=== PATIENT | female | born 1965 | race Caucasian/White ===

== ENCOUNTER 2019-07-08 06:39 | Inpatient (IN) ==
--- NOTE | 2019-06-14 20:27 | PAT Medication Instructions ---
Medication Instructions Date of Service June 14, 2019 Home Medications cholecalciferol (vitamin D3) [Vitamin D3] 5,000 unit PO QAM epinephrine [EpiPen] 0.3 mg IM Q3H PRN magnesium citrate 300 mg PO QAM omega 2-pdf-mbn-fish oil [Fish Oil] 1 cap PO QAM Continue as directed epinephrine [EpiPen] 0.3 mg IM Q3H PRN (if needed) STOP taking 2 weeks before surgery (or as soon as possible if surgery is within 2 weeks) omega 5-wkk-aye-fish oil [Fish Oil] 1 cap PO QAM DO NOT take the morning of surgery cholecalciferol (vitamin D3) [Vitamin D3] 5,000 unit PO QAM magnesium citrate 300 mg PO QAM Other Notes If you have any questions please call us at [phone] or [phone] or [phone] or [phone]
--- NOTE | 2019-06-15 14:57 | Anesthesiology Consultation ---
Date of Service June 15, 2019 Assessment & Plan (1) Encounter for pre-operative examination: - Awaiting review preop testing. - Awaiting surgeon-ordered PCP clearance (Dr. King). Chart Review Chart Review: Pending: Refer to Additional Notes / Consult section (awaiting pcp eval with BP check) and Patient seen in Pre Admission Testing Teaching & Discussion Pre-Anesthesia Teaching/Discussion Notes: Instructed NPO after midnight before surgery,except medications with 15 cc of water. Medication instructions provided according to the PAT guidelines. History Surgery Operation Date: 07/08/19 09:35 Proposed Procedures p Right Total Hip Arthroplasty - Morgan Davies MD Height/Weight Height: 5 ft 2 in Weight: 77.2 kg Allergies Allergy/AdvReac Type Severity Reaction Status Date / Time bee venom protein (honey bee) Allergy Severe Anaphylaxis Verified 06/10/19 08:51 Medications Home Medications Medication Instructions Recorded Confirmed Last Taken cholecalciferol (vitamin D3) 5,000 unit PO QAM 06/10/19 06/10/19 Unknown [Vitamin D3] epinephrine [EpiPen] 0.3 mg IM Q3H PRN 06/10/19 06/10/19 Unknown magnesium citrate 300 mg PO QAM 06/10/19 06/10/19 Unknown omega 3-nca-efy-fish oil [Fish Oil] 1 cap PO QAM 06/10/19 06/10/19 Unknown lisinopril 20 mg PO DAILY 06/15/19 06/15/19 Unknown Past Medical History Medical History History of hypertension + white coat syndrome Obesity Osteoarthritis Exercise / Class Metabolic Activity II 4-5 Yardwork/Stairs/Walk up hill Past Family History Family History Other No significant family history Past Surgical History Surgical History History of left salpingo-oophorectomy [place] teeth removed Past Anesthesia History No Hx of Anesthesia Complications (except post-op nausea) and No Family Hx of Anesthesia Complications History of PONV No Hx of Motion Sickness and History of PONV (nausea*) Social History Smoking Status: Former smoker tobacco type: cigarettes Do You Dip or Chew Tobacco: No Smoking End Date: QUIT 10+ YEARS AGO Hx Alcohol Use: No Hx Substance Use: No substance use type: does not use Review of Systems Patient denies chest pain, shortness of breath, dyspnea on exertion, reflux, cough, wheezing, palpitations. Physical Exam Vital Signs VITALS BP 146/96 P 62 TEMP 98.2 SP02 94%RA RESP 18 PHYSICAL Full neck and c-spine range of motion. Full TMJ range of motion. TMD 3.5 finger breaths Mallampati Score 2 Dentition: missing side Lungs: clear throughout to auscultation Cardiac: regular rate and rhythm, no murmurs noted Spine: normal Carotid arteries: negative bruit Extremities: no edema Testing Laboratory Results 06/15/19 15:22 06/15/19 15:22 PT 9.9 Seconds (9.0-12.0) 06/15/19 15:22 INR 1.0 (0.9-1.1) 06/15/19 15:22 APTT 26.9 Seconds (21.0-31.0) 06/15/19 15:22 Hemoglobin A1c 5.9 % (4.5-5.6) H 06/15/19 15:22 Urine Color Yellow 06/15/19 15:22 Urine Appearance Clear (Clear) 06/15/19 15:22 Urine pH 5.0 (4.5-7.5) 06/15/19 15:22 Ur Specific [place] 1.017 (1.000-1.030) 06/15/19 15:22 Urine Protein Negative (Negative) 06/15/19 15:22 Urine Glucose (UA) Negative (Negative) 06/15/19 15:22 Urine Ketones Negative (Negative) 06/15/19 15:22 Urine Nitrite Negative (Negative) 06/15/19 15:22 Ur Leukocyte Esterase Negative (Negative) 06/15/19 15:22 Blood Type O Positive 06/15/19 15:22 Antibody Screen NEGATIVE 06/15/19 15:22 Electrocardiogram Date: 06/15/19 Findings: + SB @ (54) Chest X-Ray Date: 06/15/19 Findings: + NAD
[2019-06-15 16:03] LABS: Basophils # (auto) 0.02 K/uL (0-0.2); Basophils % (auto) 0.2 %; Eosinophils # (auto) 0.04 K/uL (0-0.5); Eosinophils % (auto) 0.4 %; Hematocrit (blood only) 43.4 % (37-47); Hemoglobin 14.5 g/dL (12.0-16.0); Immature Granulocytes # (auto) 0.02 K/uL (0.00-0.02); Immature Granulocytes % (auto) 0.2 %; Lymphocytes # (auto) 2.69 K/uL (1.2-3.4); Lymphocytes % (auto) 26.3 %; Mean Corpuscular Hemoglobin 30.7 pg (25-34); Mean Corpuscular Hgb Conc 33.4 g/dL (32-36); Mean Corpuscular Volume 91.8 fL (80-100); Mean Platelet Volume 9.8 fL (7.4-10.4); Monocytes # (auto) 0.44 K/uL (0.11-0.59); Monocytes % (auto) 4.3 %; Neutrophils # (auto) 7.02 K/uL (1.4-6.5); Neutrophils % (auto) 68.6 %; Platelet Count 257 K/uL (130-400); RDW Standard Deviation 43.8 fL (36.4-46.3); Red Blood Count 4.73 M/uL (4.2-5.4); White Blood Count 10.23 K/uL (4.8-10.8)
[2019-06-15 16:07] LABS: Appearance Urine Clear (Clear); Bilirubin Urine Negative (Negative); Blood Urine Negative (Negative); Color Urine Yellow; Glucose Urine UA Negative (Negative); Ketones Urine Negative (Negative); Leukocyte Esterase Urine Negative (Negative); Nitrite Urine Negative (Negative); Protein Urine Negative (Negative); Specific Gravity Urine 1.017 (1.000-1.030); Urobilinogen Urine Negative (Negative)
[2019-06-15 16:09] LABS: Albumin Level 4.4 gm/dl (3.4-5.0); BUN Creatinine Ratio 17.5 (10-20); Calcium 9.6 mg/dl (8.5-10.1); Est GFR (African American) 76.6; Est GFR (Non-African American) 66.1; Potassium 3.9 mmol/L (3.5-5.1)
[2019-06-15 16:12] LABS: Albumin Globulin Ratio 1.2 (0.9-2); Bilirubin,Total 0.5 mg/dl (0.2-1); Globulin 3.6 gm/dl (2.5-4.0)
[2019-06-15 16:16] LABS: Partial Thromboplastin Time 26.9 Seconds (21.0-31.0); Prothrombin Time 9.9 Seconds (9.0-12.0)
[2019-06-16 06:25] LABS: Estimated Average Glucose 123 mg/dl; Hemoglobin A1C 5.9 % (4.5-5.6)
--- NOTE | 2019-06-16 15:55 | History & Physical Report ---
Date of Service June 16, 2019 Assessment & Plan (1) Primary localized osteoarthrosis of right hip: DIAGNOSES: Right hip osteoarthritis. PROCEDURE: Right total hip arthroplasty. PLAN: The patient is scheduled to undergo this procedure at the [facility] as an inpatient with Dr. Morgan Davies on July 08, 2019. Risks and complications of the procedure such as infection, bleeding, pain, scarring, nerve and blood vessel damage, weakness, wound problems, stiffness, incomplete relief of symptoms, hardware failure, hardware loosening, wear, fracture, tendon or ligament injury, dislocation, leg length inequality, blood clots, embolism, heart attack, stroke and were explained to patient by Dr. Davies at her visit today. Informed consent to perform the procedure was obtained. We have already received medical clearance from the patient's primary care provider. However, we will need to obtain a preoperative CBC with differential, complete metabolic panel, PT, INR, blood type and screen, urinalysis, urine culture, EKG, hemoglobin A1c and a nasal swab for MRSA. The patient states she will obtain this testing prior to her appointment with anesthesia this afternoon. The patient states she has a walker she will bring with her on the day of surgery. I educated her about the total hip precautions and the use of an abduction pillow for 6 weeks postoperatively. I also advised her that I will provide her with prescriptions for an opioid analgesic along with an anti-inflammatory, upon discharge and I discussed use of extra strength Tylenol and baby aspirin twice daily for 30 days postoperatively for DVT prophylaxis. I also provided the patient with some information about lectures offered at [facility] in regards to joint replacement surgery, I went over the discharge packet with her and she states she will most likely have some in-home therapy for the first 2 weeks postoperatively. I also educated about the use of antibiotics prior to dental cleaning or procedures after joint replacement surgery. I also advised that she will need to purchase a hip kit from either [employer] or [employer] for the procedure. The patient will be scheduled for her 2-week postoperative followup with Dr. Davies on 07/20 at 9:00 a.m. At that appointment, she will be provided with an order for physical therapy along with a rehab protocol that she is to follow. She states she will most likely continue her outpatient physical therapy at [facility] in [place], [place]. I did provide the patient with the paperwork to obtain a handicap placard for her vehicle. I also advised her to read over the entire packet that was provided in regards to information she may need in regards to hip replacement surgery. The patient and her verbalized understanding of all information provided during today's visit. They thanked us for the care they received and states if there are questions or concerns, they will contact the clinic. History of Present Illness Chief Complaint: CHIEF COMPLAINT: Right hip pain. Primary Care Provider: Mariama Griffin MD HISTORY OF PRESENT ILLNESS: This 54-year-old female presents to clinic today for preoperative history and physical. The patient complains of 1 year history of anterolateral hip pain that is becoming progressively worse and developed an insidious onset and she has had no relief with the use of nonsteroidal agents or ice or any stretching type activities. The patient was referred to Dr. Davies by Dr. Reyna after he saw her for some right-sided knee pain. PAST SURGICAL HISTORY: Ovary removal, fallopian tube removal, wisdom tooth extraction. PAST MEDICAL HISTORY: Hypertension and mild obesity. FAMILY HISTORY: Positive for hypertension. ALLERGIES: The patient has no known drug allergies. CURRENT MEDICATIONS: Lisinopril 20 mg tablet daily, vitamin D3 unknown dosage daily, fish oil oral capsule, unknown dosage 1 twice daily and magnesium unknown dosage daily. SOCIAL HISTORY: Completely unremarkable. Allergies Allergy/AdvReac Type Severity Reaction Status Date / Time bee venom protein (honey bee) Allergy Severe Anaphylaxis Verified 06/10/19 08:51 Home Medications Home Medications Medication Instructions Recorded Confirmed Type cholecalciferol (vitamin D3) 5,000 unit PO QAM 06/10/19 06/10/19 History [Vitamin D3] epinephrine [EpiPen] 0.3 mg IM Q3H PRN 06/10/19 06/10/19 History magnesium citrate 300 mg PO QAM 06/10/19 06/10/19 History omega 7-gci-otv-fish oil [Fish Oil] 1 cap PO QAM 06/10/19 06/10/19 History lisinopril 20 mg PO DAILY 06/15/19 06/15/19 History Past Med/Surg History Medical History History of hypertension + white coat syndrome Obesity Osteoarthritis Surgical History History of left salpingo-oophorectomy [place] teeth removed Family History Other No significant family history Social History Preferred Language: [place] African Communication Ability: Effective Oxygen Equipment Aide Required: No Beliefs That Will Affect Care: None marital status: Current Living Situation: Family current occupational status: employed Other Information That Helps Us Care for You: No Feels Safe at Home: Yes Safety Concerns: Feels Safe At This Time Smoking Status: Former smoker Tobacco Type: cigarettes ; Do You Dip or Chew Tobacco: No ; Smoking End Date: QUIT 10+ YEARS AGO ; Second Hand Exposure: Yes (IN THE PAST) ; Tobacco Cessation Education Requested by Patient: No Hx Alcohol Use: No Hx Substance Use: No Review of Systems All systems reviewed & are unremarkable except as noted in HPI & below Physical Exam Physical Exam: PHYSICIAL EXAMINATION: The patient's skin is normal in appearance. No open skin lesions or discharge. Eyes: Pupils are equal and reactive to light and accommodating. Extraocular movements are intact. Throat: Posterior pharynx is clear with absence of edema, erythema or exudate. Cardiovascular exam: The patient has a regular rate and rhythm, no murmurs or gallops appreciated. Lungs: Auscultation of lung renteria reveals clear breath sounds throughout, no wheezing, rales or rhonchi. Abdomen is mildly obese, nondistended, nontender with normoactive bowel sounds. Extremities: Right hip: The patient has a positive Stinchfield test. Flexion is to 115 degrees, external rotation to 50 degrees, internal rotation to 20 degrees. MAYRA test is 3 fists. The patient experiences referred pain to the anterolateral aspect of the hip with active abduction and adduction of the right lower extremity. Otherwise, she is neurovascularly intact in her calf is soft and supple, nontender to palpation. She does walk with a slight antalgic gait. Neurologic exam: Cranial nerves 2-12 are intact with no motor or sensory deficit. Psychological/general exam: The patient is alert and oriented x3 with proper grooming and hygiene. Results & Data Laboratory Results Lab Results 06/15/19 06/15/19 06/15/19 Range/Units 15:22 15:22 15:22 WBC (4.8-10.8) K/uL RBC (4.2-5.4) M/uL Hgb (12.0-16.0) g/dL Hct (37-47) % MCV (80-100) fL MCH (25-34) pg MCHC (32-36) g/dL RDW Std Deviation (36.4-46.3) fL RDW Coeff of Shitla (11.5-14.5) % Plt Count (130-400) K/uL MPV (7.4-10.4) fL Immature Gran % (Auto) % Neut % (Auto) % Lymph % (Auto) % [place] % (Auto) % Eos % (Auto) % Baso % (Auto) % Immature Gran # (Auto) (0.00-0.02) K/uL Neut # (Auto) (1.4-6.5) K/uL Lymph # (Auto) (1.2-3.4) K/uL [place] # (Auto) (0.11-0.59) K/uL Eos # (Auto) (0-0.5) K/uL Baso # (Auto) (0-0.2) K/uL PT (9.0-12.0) Seconds INR (0.9-1.1) APTT (21.0-31.0) Seconds PTT Ratio Sodium 139 (136-145) mmol/L Potassium 3.9 (3.5-5.1) mmol/L Chloride 106 (98-107) mmol/L Carbon Dioxide 26 (21-32) mmol/L Anion Gap 7.0 (3-11) BUN 17 (7-18) mg/dl Creatinine 0.96 (0.6-1.2) mg/dl Est Cr Clr Drug Dosing 63.0 ml/min Est GFR ( Amer) 76.6 Est GFR (Non-Af Amer) 66.1 BUN/Creatinine Ratio 17.5 (10-20) Glucose 114 H (70-99) mg/dl Estimat Average Glucose mg/dl Hemoglobin A1c (4.5-5.6) % Calcium 9.6 (8.5-10.1) mg/dl Total Bilirubin 0.5 (0.2-1) mg/dl AST 9 L (15-37) U/L ALT 23 (12-78) U/L Alkaline Phosphatase 89 (45-117) U/L Total Protein 8.0 (6.4-8.2) gm/dl Albumin 4.4 (3.4-5.0) gm/dl Globulin 3.6 (2.5-4.0) gm/dl Albumin/Globulin Ratio 1.2 (0.9-2) Urine Color Yellow Urine Appearance Clear (Clear) Urine pH 5.0 (4.5-7.5) Ur Specific [place] 1.017 (1.000-1.030) Urine Protein Negative (Negative) Urine Glucose (UA) Negative (Negative) Urine Ketones Negative (Negative) Urine Blood Negative (Negative) Urine Nitrite Negative (Negative) Urine Bilirubin Negative (Negative) Urine Urobilinogen Negative (Negative) Ur Leukocyte Esterase Negative (Negative) Nasal Screen MRSA (PCR) Negative (Negative) Blood Type Antibody Screen 06/15/19 06/15/19 06/15/19 Range/Units 15:22 15:22 15:22 WBC 10.23 (4.8-10.8) K/uL RBC 4.73 (4.2-5.4) M/uL Hgb 14.5 (12.0-16.0) g/dL Hct 43.4 (37-47) % MCV 91.8 (80-100) fL MCH 30.7 (25-34) pg MCHC 33.4 (32-36) g/dL RDW Std Deviation 43.8 (36.4-46.3) fL RDW Coeff of Shital 13.0 (11.5-14.5) % Plt Count 257 (130-400) K/uL MPV 9.8 (7.4-10.4) fL Immature Gran % (Auto) 0.2 % Neut % (Auto) 68.6 % Lymph % (Auto) 26.3 % [place] % (Auto) 4.3 % Eos % (Auto) 0.4 % Baso % (Auto) 0.2 % Immature Gran # (Auto) 0.02 (0.00-0.02) K/uL Neut # (Auto) 7.02 H (1.4-6.5) K/uL Lymph # (Auto) 2.69 (1.2-3.4) K/uL [place] # (Auto) 0.44 (0.11-0.59) K/uL Eos # (Auto) 0.04 (0-0.5) K/uL Baso # (Auto) 0.02 (0-0.2) K/uL PT 9.9 (9.0-12.0) Seconds INR 1.0 (0.9-1.1) APTT 26.9 (21.0-31.0) Seconds PTT Ratio 1.0 Sodium (136-145) mmol/L Potassium (3.5-5.1) mmol/L Chloride (98-107) mmol/L Carbon Dioxide (21-32) mmol/L Anion Gap (3-11) BUN (7-18) mg/dl Creatinine (0.6-1.2) mg/dl Est Cr Clr Drug Dosing ml/min Est GFR ( Amer) Est GFR (Non-Af Amer) BUN/Creatinine Ratio (10-20) Glucose (70-99) mg/dl Estimat Average Glucose 123 mg/dl Hemoglobin A1c 5.9 H (4.5-5.6) % Calcium (8.5-10.1) mg/dl Total Bilirubin (0.2-1) mg/dl AST (15-37) U/L ALT (12-78) U/L Alkaline Phosphatase (45-117) U/L Total Protein (6.4-8.2) gm/dl Albumin (3.4-5.0) gm/dl Globulin (2.5-4.0) gm/dl Albumin/Globulin Ratio (0.9-2) Urine Color Urine Appearance (Clear) Urine pH (4.5-7.5) Ur Specific [place] (1.000-1.030) Urine Protein (Negative) Urine Glucose (UA) (Negative) Urine Ketones (Negative) Urine Blood (Negative) Urine Nitrite (Negative) Urine Bilirubin (Negative) Urine Urobilinogen (Negative) Ur Leukocyte Esterase (Negative) Nasal Screen MRSA (PCR) (Negative) Blood Type Antibody Screen 06/15/19 Range/Units 15:22 WBC (4.8-10.8) K/uL RBC (4.2-5.4) M/uL Hgb (12.0-16.0) g/dL Hct (37-47) % MCV (80-100) fL MCH (25-34) pg MCHC (32-36) g/dL RDW Std Deviation (36.4-46.3) fL RDW Coeff of Shital (11.5-14.5) % Plt Count (130-400) K/uL MPV (7.4-10.4) fL Immature Gran % (Auto) % Neut % (Auto) % Lymph % (Auto) % [place] % (Auto) % Eos % (Auto) % Baso % (Auto) % Immature Gran # (Auto) (0.00-0.02) K/uL Neut # (Auto) (1.4-6.5) K/uL Lymph # (Auto) (1.2-3.4) K/uL [place] # (Auto) (0.11-0.59) K/uL Eos # (Auto) (0-0.5) K/uL Baso # (Auto) (0-0.2) K/uL PT (9.0-12.0) Seconds INR (0.9-1.1) APTT (21.0-31.0) Seconds PTT Ratio Sodium (136-145) mmol/L Potassium (3.5-5.1) mmol/L Chloride (98-107) mmol/L Carbon Dioxide (21-32) mmol/L Anion Gap (3-11) BUN (7-18) mg/dl Creatinine (0.6-1.2) mg/dl Est Cr Clr Drug Dosing ml/min Est GFR ( Amer) Est GFR (Non-Af Amer) BUN/Creatinine Ratio (10-20) Glucose (70-99) mg/dl Estimat Average Glucose mg/dl Hemoglobin A1c (4.5-5.6) % Calcium (8.5-10.1) mg/dl Total Bilirubin (0.2-1) mg/dl AST (15-37) U/L ALT (12-78) U/L Alkaline Phosphatase (45-117) U/L Total Protein (6.4-8.2) gm/dl Albumin (3.4-5.0) gm/dl Globulin (2.5-4.0) gm/dl Albumin/Globulin Ratio (0.9-2) Urine Color Urine Appearance (Clear) Urine pH (4.5-7.5) Ur Specific [place] (1.000-1.030) Urine Protein (Negative) Urine Glucose (UA) (Negative) Urine Ketones (Negative) Urine Blood (Negative) Urine Nitrite (Negative) Urine Bilirubin (Negative) Urine Urobilinogen (Negative) Ur Leukocyte Esterase (Negative) Nasal Screen MRSA (PCR) (Negative) Blood Type O Positive Antibody Screen NEGATIVE
[~2019-07-08 06:39] MED LIST: ACETAMINOPHEN 500 MG TAB PO SCH; BUPIVACAINE 0.5 % 5 MG/1 ML PF 10ML VIAL ONE; CEFAZOLIN 2000MG 2,000 MG/15 ML SYR IV SCH; CeleBREX 200 MG CAP PO SCH; FAMOTIDINE 20 MG TAB PO SCH; LR 15ML/HR IV SCH; LR 60ML/HR IV SCH; METOCLOPRAMIDE HCL 10 MG TABLET PO SCH; ROPIVACAINE 0.5% HCL/PF 150 MG, BUPIVACAINE 0.5% MPF 30 ML, EPINEPHrine 0.15 MG, Ketoro... INFIL SCH; SCOPOLAMINE 1.5 MG TDSY TD SCH; TRAMADOL HCL 50 MG TABLET PO SCH; TRANEXAMIC ACID 1,000 MG **IV Intra-op IV SCH; TRANEXAMIC ACID 1,000 MG **IV Pre-op IV SCH; dexAMETHasone 4 MG TAB PO SCH
[2019-07-08] MEDS ORDERED: fentaNYL citrate 100 MCG/2 ML VIAL IV PRN (07:38)
[2019-07-08] MEDS ORDERED: ATROPINE SULFATE 0.1 MG/ML 10ML SYR IV PRN (07:38)
[2019-07-08] MEDS ORDERED: HYDROmorphone INJ 1 MG/ML SYRINGE IV PRN (07:38)
[2019-07-08] MEDS ORDERED: PHENYLEPHRINE 100MCG/ML 5ML SYR IV PRN (07:38)
[2019-07-08] MEDS ORDERED: ePHEDrine sulfate 50 MG/ML AMP IV PRN (07:38)
[2019-07-08] MEDS ORDERED: ONDANSETRON INJ 2 MG/ML 2 ML VIAL IV PRN ×2 (07:38→11:09)
[2019-07-08] MEDS ORDERED: LABETALOL HCL IV 5 MG/ML 20ML IV PRN (07:38)
[2019-07-08] MEDS ORDERED: MEPERIDINE HCL 25 MG/ML CARP IV PRN (07:38)
[2019-07-08] MEDS ORDERED: fentaNYL citrate 100 MCG/2 ML VIAL ONE (07:49)
[2019-07-08] MEDS ORDERED: MIDAZOLAM HCL 1 MG/ML 2ML VIAL ONE ×2 (07:49)
--- NOTE | 2019-07-08 08:57 | History & Physical Bridge Note ---
Date of Service July 08, 2019 History & Physical Bridge Note I have examined the patient, reviewed the History & Physical and in the interval since the performance of the History & Physical I have noted the following changes of clinical significance: no changes noted
[2019-07-08] MEDS ORDERED: ORTHO JOINT ANESTHETIC ONE (09:03)
[2019-07-08] MEDS ORDERED: LIDOCAINE HCL 2% 2 ML VIAL/AMP(20MG/ML) INFIL ONE (09:41)
[2019-07-08] MEDS ORDERED: PROPOFOL IV EMULSION 10 MG/ML 20 ML VIAL IV ONE (09:41)
[2019-07-08] MEDS ORDERED: ONDANSETRON INJ 2 MG/ML 2 ML VIAL ONE (09:41)
[2019-07-08] MEDS ORDERED: ePHEDrine sulfate 50 MG/ML SYR ONE (09:48)
--- NOTE | 2019-07-08 10:55 | Post Operative Brief Note ---
Immediate Post Op Note v1 Date of Surgery July 08, 2019 Pre & Post Diagnosis Operation Date: 07/08/19 09:25 Pre-Op Diagnosis: Right Hip Osteoarthritis Post-Op Diagnosis: Right Hip Osteoarthritis I identified the patient and participated in the time-out.: Yes Procedure Operation Date: 07/08/19 09:25 Actual Procedures p Right Total Hip Arthroplasty, Uncemented(Right) - Morgan Davies MD Surgeon Morgan Davies MD Measurer JEANINE Garcia PA-C Estimated Blood Loss 100 Findings Consistent with Post-Op Diagnosis Fluids 1300 Anesthesia Type Spinal MAC Complications none Disposition Accompanied Patient To Recovery: No Disposition: Recovery Room
[2019-07-08] MEDS ORDERED: MAGNESIUM HYDROXIDE SUSP 30 ML UDC PO PRN (11:09)
[2019-07-08] MEDS ORDERED: DiphenhydrAMINE HCL 50 MG/ML VIAL IV PRN (11:09)
[2019-07-08] MEDS ORDERED: ALUMINUM/MAGNESIUM SUSP 30 ML UDC PO PRN (11:09)
[2019-07-08] MEDS ORDERED: bisacodyL 10 MG SUPP PR PRN (11:09)
[2019-07-08] MEDS ORDERED: HYDROmorphone INJ 0.5 MG/0.5 ML SYR IV PRN (11:09)
[2019-07-08] MEDS ORDERED: OXYCODONE HCL IR 5 MG TAB (IMMEDIATE RELEASE) PO PRN (11:09)
[2019-07-08] MEDS ORDERED: NALOXONE HCL 0.4 MG/1 ML VIAL/CARP IV PRN (11:09)
[2019-07-08] MEDS ORDERED: METOCLOPRAMIDE HCL INJ 5 MG/ML 2 ML VIAL IV PRN (11:09)
--- NOTE | 2019-07-08 11:09 | Operative Report ---
Post Operative Report Pre & Post Diagnosis Operation Date: 07/08/19 09:25 Pre-Op Diagnosis: Right Hip Osteoarthritis Post-Op Diagnosis: Right Hip Osteoarthritis I identified the patient and participated in the time-out.: Yes Procedure Operation Date: 07/08/19 09:25 Actual Procedures p Right Total Hip Arthroplasty, Uncemented(Right) - Morgan Davies MD Surgeon Morgan Davies MD Golf Course Designer JEANINE Garcia PA-C Estimated Blood Loss 100 Findings Consistent with Post-Op Diagnosis Specimens Right femoral head Complications none Disposition Accompanied Patient To Recovery: Yes Disposition: Recovery Room Description of Procedure I was present during the entire procedure assisting with wound closure and dressing application. Please see Dr. Davies procedure note for specifics of the case. I attest to the content of the Intraoperative Record and any orders documented therein. Any exceptions are noted below.
[2019-07-08] MEDS ORDERED: EPINEPHRINE ADULT AUTO-INJECT 0.3 MG SYR IM PRN (11:13)
[2019-07-08] MEDS ORDERED: SODIUM CHLORIDE 0.9% 1000ML 1,000 ML IV SCH (11:15)
--- NOTE | 2019-07-08 11:35 | XRay Report ---
XR hip 1V RT w pelvis HISTORY: 54 years-old Female IN PACU - A/P PELVIS and LATERAL HIP right hip total joint arthroplast y COMPARISON: Pelvis radiograph 06/15/2019 TECHNIQUE: AP view of the pelvis with crosstable lateral view of the right hip FINDINGS: Satisfactory alignment of the right hip total joint arthroplasty. No acute fracture. Expected postsur gical soft tissue swelling and deep tissue air adjacent to the right hip. No retained foreign body id entified. IMPRESSION: Satisfactory alignment of the right hip total joint arthroplasty. The above report was generated using voice recognition software. It may contain grammatical, syntax o r spelling errors. Electronically signed by: Dany Escobar M.D. 07/08/2019 11:34 AM
--- NOTE | 2019-07-08 11:36 | Anesthesiology Progress Note ---
Date of Service July 08, 2019 Anesthesia Post Procedure Vital Signs Vital Signs: Temp Pulse Pulse Resp BP Pulse Ox 07/08/19 11:25 61 13 119/71 94 07/08/19 11:15 63 15 114/71 99 07/08/19 11:06 36.2 C L 69 15 107/65 97 07/08/19 07:13 36.8 C 69 18 179/104 H 98 Pain Intensity Right Hip: Pain Intensity: 1 Transfer of Care Handoff Completed per policy Notes Mental Status: alert / awake / arousable Patient Amnestic to Procedure: Yes Nausea / Vomiting: adequately controlled Pain: adequately controlled Airway Patency, RR, SpO2: stable & adequate BP & HR: stable & adequate Hydration State: stable & adequate Anesthetic Complications: no major complications apparent and Pt Satisfied with anesthetic care
--- NOTE | 2019-07-08 11:38 | Operative Report ---
DATE OF OPERATION: 07/08/2019 PREOPERATIVE DIAGNOSES: Right hip osteoarthritis and congenital hip dysplasia. POSTOPERATIVE DIAGNOSES: Right hip osteoarthritis and congenital hip dysplasia. OPERATIONS PERFORMED: Right total hip arthroplasty. A 22 modifier should be added to this procedure due to the increased complexity secondary to congenital hip dysplasia. SURGEON: Morgan Davies MD AUDIO DIRECTOR: José Garcia PA-C ESTIMATED BLOOD LOSS: 100 mL. INTRAVENOUS FLUIDS: 1300 mL crystalloid. SPECIMENS: Femoral head. COMPLICATIONS: None. IMPLANTS: 1. DePuy [place] Gription acetabular sector cup 50 mm outer diameter. 2. DePuy [place] cancellous bone screw 6.5 mm x 40 mm. 3. DePuy [place] Ultrex polyethylene liner neutral for a 32 mm femoral head. 4. DePuy [place] size 2 standard offset femoral stem with Porocoat. 5. Biolox delta ceramic femoral head, 32 mm diameter with a +1 offset. INDICATIONS: Ms. Gupta is a 54-year-old female with pain in her right hip for the last 2 years. The pain has progressively worsened over time and now is affecting her activities of daily living. X-rays were obtained demonstrating a congenital hip dysplasia with a shallow socket, valgus femoral neck and end-stage osteoarthritis with complete joint space loss, subchondral cyst formation and subchondral sclerosis. I had a long discussion with her about the risks and benefits of surgery, alternatives to surgery and expected outcomes. After reviewing all these, she elected to proceed with surgery. All questions were answered. Informed consent was signed. OPERATIVE FINDINGS: The patient's acetabulum was quite shallow with abundant medial osteophytes covering the cotyloid fossa. She had an acetabular retroversion as well as excessive femoral anteversion. I was able to create a new socket for her in normal anteversion and placed a ceramic on polyethylene bearing through a posterior approach. DESCRIPTION OF THE OPERATION: The patient was identified in the preoperative holding area where her surgical site was marked. She was given a spinal anesthetic, then brought back to main operating room where she was placed on the operating room table and general anesthesia was administered. All bony prominences were padded. Perioperative antibiotics were administered. She was prepped and draped in normal sterile fashion. Prior to incision, a multidisciplinary timeout was called. All in the room were in agreement. We began by making an 18 cm long incision for posterior approach to the hip. We dissected down through subcutaneous tissues to the level of the fascia. Fascia was incised in line with the incision. A Charnley bow was placed. The sciatic nerve was identified and protected throughout the case. The trochanteric bursa contents were excised. Subcutaneous fat was dissected off the piriformis and short external rotators and these were dissected off the posterior aspect of the hip capsule. The quadratus femoris was similarly subperiosteally dissected. We then made a box cut in the posterior aspect of the hip capsule. Femoral head was dislocated. Again, she was noted to have a valgus neck with shortening as well as flattening of her femoral head consistent with hip dysplasia. We then marked out our femoral neck cut at 8 mm, which was our preoperative template. Once the neck cut was made, the specimen was sent for permanent section. The acetabulum was then exposed. As stated above, she had acetabular retroversion with abundant medial osteophytes. We began by reaming with a 42 mm reamer, which was used to medialize her acetabulum and removed the medial osteophytes. This revealed underlying pulvinar fat which was removed with electrocautery. I then sequentially reamed up to a size 50 mm acetabulum. This gave us a healthy bleeding cancellous bone. The 50 mm cup was then opened up. The acetabulum was irrigated and dried and then the [place] Gription shell was impacted into position with 45 degrees of lateral opening and 25 degrees of anteversion. The drill was used to place a single bone screw up into the ilium. Excellent fixation was obtained. We then placed our polyethylene liner for a 50 outer diameter and 32 inner diameter. This was impacted into position. The locking mechanism was checked to ensure it had engaged, which it had. We then exposed the femoral neck. The lateral hip capsule was removed and the lateral femoral neck was then excised using a box osteotome. The intramedullary guide was used followed by the lateralizing reamer. However, canal was so tight that we were unable to do a lot of lateralizing with a reamer. We then sequentially reamed her up to a size 2, which was a preoperative template. We then broached her up to the size #2. This gave us excellent torsional stability and sat about a millimeter above our neck cut, which was appropriate. We then trialed with a +5 femoral head. However, we were unable to reduce the hip because of excessive leg length. We therefore downsized to a +1.5 femoral head. This allowed us to easily relocate the hip. Her shuck test was appropriate. Her leg lengths were checked and these were symmetric. The hip was stable in extension and external rotation. She was stable in the sleeper position. At 90 degrees of hip flexion, she could be internally rotated 60 degrees before leaving out of the cup. I was very happy with the stability exam. Therefore, the hip was dislocated and the trial components were removed from the femur. The femoral canal was irrigated and dried. The real size 2 standard offset [place] femoral stem was opened up and impacted down into position. It sat at the same level as the broach. The +1 ceramic femoral head was then opened up and impacted onto the trunnion, which had been cleaned and dried. The hip was then atraumatically reduced. The wound was irrigated with dilute Betadine solution. The periarticular injection was then used. We then began to close. The short external rotators and piriformis were repaired using #2 Vicryl through bone tunnels in the posterior aspect of the greater trochanter. The fascia was run with a looped #1 PDS suture. The deep dermal layer was closed with #1 PDS. The deep dermal layer was closed with 2-0 Vicryl. Zipline was used for the skin. A Silverlon dressing was placed followed by a compressive dressing. The patient was rolled supine. Her leg lengths were checked and again were symmetric. She was then placed into a triangular shaped abduction pillow and transferred to recovery room in stable condition. POSTOPERATIVE COURSE: The patient will be discharged home from the recovery room. The patient will be admitted overnight for pain control and monitoring. She will be on aspirin for DVT prophylaxis. She will be weightbearing as tolerated with posterior hip precautions. I attest to the content of the Intraoperative Record and any orders documented therein. Any exception s are noted below.
[2019-07-08] MEDS: ACETAMINOPHEN 500 MG TAB PO SCH ×2 (13:05→21:23)
[2019-07-08] MEDS: KETOROLAC 30 MG/ML VIAL IV SCH ×2 (13:05→19:51)
[2019-07-08] MEDS: CHECK SCOPOLAMINE PATCH PLACEMENT SCH ×2 (15:44→23:25)
[2019-07-08] MEDS: TRAMADOL HCL 50 MG TABLET PO PRN ×2 (16:56→17:46)
[2019-07-08] MEDS: CEFAZOLIN 2000MG 2,000 MG/15 ML SYR IV SCH (16:57)
[2019-07-08] MEDS ORDERED: TRANEXAMIC ACID 1,000 MG in 0.9 % SODIUM CHLORIDE 100 ML IV SCH (17:15)
[2019-07-08] MEDS ORDERED: SENNA 8.6 MG TAB PO SCH (21:00)
[2019-07-08] MEDS: DOCUSATE SODIUM 100 MG CAP PO SCH (21:24)
[2019-07-08] MEDS: ASPIRIN 81 MG ECTAB PO SCH (21:24)
[2019-07-09] MEDS: CEFAZOLIN 2000MG 2,000 MG/15 ML SYR IV SCH (01:41)
[2019-07-09] MEDS: KETOROLAC 30 MG/ML VIAL IV SCH ×2 (01:41→08:40)
[2019-07-09] MEDS: ACETAMINOPHEN 500 MG TAB PO SCH ×2 (05:12→13:00)
[2019-07-09 05:23] LABS: Basophils # (auto) 0.01 K/uL (0-0.2); Basophils % (auto) 0.1 %; Hematocrit (blood only) 32.6 % (37-47); Immature Granulocytes # (auto) 0.02 K/uL (0.00-0.02); Immature Granulocytes % (auto) 0.1 %; Lymphocytes % (auto) 12.9 %; Mean Corpuscular Hemoglobin 30.5 pg (25-34); Mean Corpuscular Hgb Conc 33.7 g/dL (32-36); Mean Corpuscular Volume 90.3 fL (80-100); Mean Platelet Volume 9.3 fL (7.4-10.4); Monocytes # (auto) 0.77 K/uL (0.11-0.59); Monocytes % (auto) 5.5 %; Neutrophils # (auto) 11.31 K/uL (1.4-6.5); Neutrophils % (auto) 81.4 %; Platelet Count 231 K/uL (130-400); RDW Coefficient of Variation 13.1 % (11.5-14.5); RDW Standard Deviation 43.5 fL (36.4-46.3); Red Blood Count 3.61 M/uL (4.2-5.4); White Blood Count 13.91 K/uL (4.8-10.8)
[2019-07-09 05:45] LABS: BUN Creatinine Ratio 17.5 (10-20); Calcium 8.5 mg/dl (8.5-10.1); Est GFR (African American) 67.2; Potassium 4.4 mmol/L (3.5-5.1)
--- NOTE | 2019-07-09 07:44 | Anesthesiology Progress Note ---
Date of Service July 09, 2019 Anesthesia Post Procedure Vital Signs Vital Signs: Temp Pulse Pulse Resp BP Pulse Ox 07/09/19 03:20 36.8 C 49 L 16 96/59 L 98 07/08/19 23:33 36.9 C 50 L 16 101/63 96 07/08/19 20:00 37.1 C 63 16 106/63 95 07/08/19 15:17 36.7 C 62 16 121/70 98 07/08/19 14:01 16 132/78 93 07/08/19 12:58 64 16 129/71 93 07/08/19 12:37 61 16 120/73 92 07/08/19 12:05 36.8 C 64 14 118/73 94 07/08/19 11:50 60 19 130/68 92 07/08/19 11:35 36.7 C 65 18 107/73 94 07/08/19 11:25 61 13 119/71 94 07/08/19 11:15 63 15 114/71 99 07/08/19 11:06 36.2 C L 69 15 107/65 97 Pain Intensity Right Hip: Pain Intensity: 5 Notes Mental Status: alert / awake / arousable and participated in evaluation Nausea / Vomiting: adequately controlled Pain: adequately controlled Airway Patency, RR, SpO2: stable & adequate BP & HR: stable & adequate Hydration State: stable & adequate
[2019-07-09] MEDS ORDERED: dexAMETHasone 4 MG TAB PO SCH (08:00)
[2019-07-09] MEDS: DOCUSATE SODIUM 100 MG CAP PO SCH (08:40)
[2019-07-09] MEDS: ASPIRIN 81 MG ECTAB PO SCH (08:41)
--- NOTE | 2019-07-09 08:50 | Orthopedic Progress Note ---
Date of Service July 09, 2019 Assessment & Plan (1) History of total right hip arthroplasty: Total hip precautions WBAT with walker assistance PT/OT this AM Keep dressing in place DVT prophy with TEDs and Aspirin Pain control with PO meds discuss discharge planning with case management F/u at [facility] in 2 wks as scheduled. Subjective This 54 yo F is day 1 s/p Right Total Hip Arthroplasty. She is doing very well this AM. Has only minimal pain over anterior groin with certain movements. States that the pain meds easily control her pain. Has been ambulatory with walker assistance to bathroom. Denies CP, SOB, nausea, vomiting, fever, chills, sweats, lethargy or numbness/tingling in Right LE. States that she will be ready to go home after lunch. Review of Systems Review of Systems: All systems reviewed & are unremarkable except as noted in HPI & below Physical Exam Physical Exam: Right lower leg: Dressing clean, dry and intact. Able to fire quad and perform SLRT. Knee ROM from 0-90 causes only mild anterior hip discomfort. Minimal pain with very light internal and external hip rotation. Able to actively dorsi/plantar flex foot. Calf soft and supple. Periph pulses easily palpable. Cap refill < 2 seconds. Results & Data Vital Signs (Past 12 Hours) Vital Signs Temp Pulse Pulse Resp BP Pulse Ox 07/09/19 08:29 44 L 07/09/19 07:53 36.9 C 45 L 16 108/64 97 07/09/19 03:20 36.8 C 49 L 16 96/59 L 98 07/08/19 23:33 36.9 C 50 L 16 101/63 96 Laboratory Results 07/09/19 07/09/19 Range/Units 04:48 04:48 WBC 13.91 H (4.8-10.8) K/uL RBC 3.61 L (4.2-5.4) M/uL Hgb 11.0 L (12.0-16.0) g/dL Hct 32.6 L (37-47) % MCV 90.3 (80-100) fL MCH 30.5 (25-34) pg MCHC 33.7 (32-36) g/dL RDW Std Deviation 43.5 (36.4-46.3) fL RDW Coeff of Shital 13.1 (11.5-14.5) % Plt Count 231 (130-400) K/uL MPV 9.3 (7.4-10.4) fL Immature Gran % (Auto) 0.1 % Neut % (Auto) 81.4 % Lymph % (Auto) 12.9 % [place]away % (Auto) 5.5 % Eos % (Auto) 0.0 % Baso % (Auto) 0.1 % Immature Gran # (Auto) 0.02 (0.00-0.02) K/uL Neut # (Auto) 11.31 H (1.4-6.5) K/uL Lymph # (Auto) 1.80 (1.2-3.4) K/uL [place]away # (Auto) 0.77 H (0.11-0.59) K/uL Eos # (Auto) 0.00 (0-0.5) K/uL Baso # (Auto) 0.01 (0-0.2) K/uL Sodium 136 (136-145) mmol/L Potassium 4.4 (3.5-5.1) mmol/L Chloride 107 (98-107) mmol/L Carbon Dioxide 25 (21-32) mmol/L Anion Gap 4.0 (3-11) BUN 19 H (7-18) mg/dl Creatinine 1.07 (0.6-1.2) mg/dl Est Cr Clr Drug Dosing 57.0 ml/min Est GFR ( Amer) 67.2 Est GFR (Non-Af Amer) 58.0 BUN/Creatinine Ratio 17.5 (10-20) Glucose 136 H (70-99) mg/dl Calcium 8.5 (8.5-10.1) mg/dl
[2019-07-09] MEDS ORDERED: MAGNESIUM CITRATE 300 MG PO SCH (09:00)
[2019-07-09] MEDS ORDERED: CHOLECALCIFEROL 1,000 UNITS TAB PO SCH (09:00)
[2019-07-09] MEDS ORDERED: lisinopriL 20 MG TAB PO SCH (09:00)
[2019-07-09] MEDS ORDERED: MULTIVITAMIN TAB PO SCH (09:00)
[2019-07-09] MEDS ORDERED: OMEGA-3 (PURIFIED FISH OIL) 1 GM CAP PO SCH (09:00)
--- NOTE | 2019-07-09 11:01 | Discharge Summary ---
Date of Service July 09, 2019 Admission HPI Per Admitting Provider HISTORY OF PRESENT ILLNESS: This 54-year-old female presents to clinic today for preoperative history and physical. The patient complains of 1 year history of anterolateral hip pain that is becoming progressively worse and developed an insidious onset and she has had no relief with the use of nonsteroidal agents or ice or any stretching type activities. The patient was referred to Dr. Davies by Dr. Reyna after he saw her for some right-sided knee pain. PAST SURGICAL HISTORY: Ovary removal, fallopian tube removal, wisdom tooth extraction. PAST MEDICAL HISTORY: Hypertension and mild obesity. FAMILY HISTORY: Positive for hypertension. ALLERGIES: The patient has no known drug allergies. CURRENT MEDICATIONS: Lisinopril 20 mg tablet daily, vitamin D3 unknown dosage daily, fish oil oral capsule, unknown dosage 1 twice daily and magnesium unknown dosage daily. SOCIAL HISTORY: Completely unremarkable. Admission Exam Per Admitting Provider PHYSICIAL EXAMINATION: The patient's skin is normal in appearance. No open skin lesions or discharge. Eyes: Pupils are equal and reactive to light and accommodating. Extraocular movements are intact. Throat: Posterior pharynx is clear with absence of edema, erythema or exudate. Cardiovascular exam: The patient has a regular rate and rhythm, no murmurs or gallops appreciated. Lungs: Auscultation of lung renteria reveals clear breath sounds throughout, no wheezing, rales or rhonchi. Abdomen is mildly obese, nondistended, nontender with normoactive bowel sounds. Extremities: Right hip: The patient has a positive Stinchfield test. Flexion is to 115 degrees, external rotation to 50 degrees, internal rotation to 20 degrees. MAYRA test is 3 fists. The patient experiences referred pain to the anterolateral aspect of the hip with active abduction and adduction of the right lower extremity. Otherwise, she is neurovascularly intact in her calf is soft and supple, nontender to palpation. She does walk with a slight antalgic gait. Neurologic exam: Cranial nerves 2- 12 are intact with no motor or sensory deficit. Psychological/general exam: The patient is alert and oriented x3 with proper grooming and hygiene. Principal Diagnosis Right hip osteoarthritis Discharge Exam Right lower leg: Dressing clean, dry and intact. Able to fire quad and perform SLRT. Knee ROM from 0-90 causes only mild anterior hip discomfort. Minimal pain with very light internal and external hip rotation. Able to actively dorsi/plantar flex foot. Calf soft and supple. Periph pulses easily palpable. Cap refill < 2 seconds. Discharge Data Allergies Allergy/AdvReac Type Severity Reaction Status Date / Time bee venom protein (honey bee) Allergy Severe Anaphylaxis Verified 07/08/19 07:04 Consultations 07/09/19 08:00 Consult Case Management - Discharge Planning Routine Procedures Performed Operation Date: 07/08/19 09:25 Actual Procedures p Right Total Hip Arthroplasty, Uncemented(Right) - Morgan Davies MD Hospital Course (1) History of total right hip arthroplasty: Patient had an uneventful overnight stay. Her pain is well controlled with PO meds. She was able to ambulate with walker assistance. She will be ready for discharge after AM PT/OT. Total hip precautions WBAT with walker assistance PT/OT this AM Keep dressing in place DVT prophy with TEDs and Aspirin Pain control with PO meds discuss discharge planning with case management F/u at [facility] in 2 wks as scheduled. Total Time Total Time Spent Total Time Spent (In Minutes): 20 mins Total Time Includes: Examination of the Patient, Discharge Planning and Medication Reconciliation Discharge Plan Discharge Items Patient Disposition: Home - Home Health Services Reason For Visit: Right Hip Osteoarthritis Discharge Diagnosis: Right Hip Osteoarthritis Activity: As commented below Lifting: None Bathing: Keep incision dry Bathing Comment: May shower tomorrow Sexual Activity: Wait until after follow-up appointment Exercise/Sports: Wait until after follow-up appointment Weightbearing: Right weightbearing Weightbearing Comment: as tolerated with walker assistance Non-emergency contact: Primary Care Provider Call non-emergency contact if: you have any medication questions, your pain is not controlled, your temperature is above 101.5, your wound has increased drainage and your wound pain has increased Follow-up/Referrals: Marcial King [Primary Care Provider] - Diet: Regular Addtl Attending Provider Instructions: Post-operative Instructions Dear Patient and Family/Friends, Before you are discharged from the hospital, it is important to know what to expect when you get home after surgery. To that end, we have created this sheet of discharge instructions which covers many commonly asked questions. Make sure you go through this sheet in its entirety with your nurse before you are discharged. Please note that we will go over the specifics of your surgery and recovery when you return for your first post-operative visit. Sincerely, Dr. Davies Medications 1. Aspirin 81 mg: you will take one tablet twice daily for 30 days post operatively to prevent blood clots. Please purchase this medication 2. Extra Strength Tylenol 500 mg: you may take two of these tablets with every other dose of your Oxycodone. When you discontinue use of Oxycodone, you may take every 6-8 hours as needed. 3. Oxycodone 5mg: you will be prescribed 30 of these tablets for pain control for the first several days post operatively as needed. 4. 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 Take 1 tablet after breakfast and 1 tab after dinner for 30 days post operative. An additional refill will be provided. If you take any other antiinflammatory medication, please discontinue them while you are using this medication. Pain Expect to be in a fair amount of pain after surgery. Remember, our goal is not to eliminate your pain, but to make it tolerable. It is a good idea to stay ahead of your pain by taking the medications you were prescribed once you get home. Typically, the pain starts improving 3-7 days after surgery. You should start weaning off the narcotic pain medication (oxycodone, hydrocodone, hydromorphone, morphine) as soon as your pain improves. Please call our office if your pain is not adequately controlled. Ice Ice your operative site at least 5 times a day for 15-30 minutes at a time. Make sure you have a thin cloth between the ice or cooling unit and your skin to prevent orellana bite. This is especially important if you received a nerve block. Continue icing your operative site for the first 5-7 days after surgery, then as needed. Diet/Nausea/Vomiting Start by drinking clear liquids and eating crackers. If you can tolerate this, then you may resume your normal diet. If you feel nauseated or vomit, take Zofran/ondansetron (if prescribed). Please call our office if you have intractable nausea or vomiting, or, if after hours, you may go to the Emergency Room for help. Constipation Constipation is a common side effect of narcotic pain medication. If you have not had a bowel movement within 2 days after surgery, we recommend purchasing an over the counter laxative such as Milk of Magnesia, Dulcolax, or Miralax from a local pharmacy, and taking it as instructed. Call our clinic if any questions. Nerve block The anesthesia team sometimes places a nerve block to help with post-operative pain control. This results in significant numbness and inability to move the extremity. The nerve block usually wears off in 8-12 hours, but sometimes can last up to 24 hours. Please call our office if you are still unable to move your extremity after 24 hours, unless you received a pain pump to take home. Nerve blocks typically wear off quickly, so start taking pain medication as soon as you start feeling soreness near your surgical site. Weight bearing and Range of Motion. Do not bear any weight through your operative extremity immediately after surgery. If you had upper extremity surgery, do not lift anything with that arm. If you are in a knee brace, keep it locked in place until your follow-up. We will discuss your weight bearing, range of motion, and lifting restrictions in detail at your first post-operative appointment. Continuous Passive Motion (CPM) Machine If you were prescribed a CPM machine, it will start after your first post- operative appointment, at which time we will give you instructions on the range of motion settings and duration of treatment Physical therapy You will be given a prescription for physical therapy or occupational therapy at your first post-operative appointment. Typically, patients start therapy within 1 week of surgery Wound care and showering We will inspect your wound at your first post-operative visit, and may do a dressing change at that time. Most patients will be in a water-proof dressing that is removed 14 days after surgery. It is normal to see some dried blood on the dressing. Do not remove your dressing, paper strips or sutures yourself unless you are given permission. Showering is allowed the day after surgery. Do not scrub or remove any dressings. The wound should not be submerged underwater (i.e. in a bathtub or pool) until 4 weeks after surgery EDWARD stockings If you were given white stockings, these are to be worn at all times except to shower (on both legs) for the first 2 weeks after surgery. Driving You may not drive while taking narcotic pain medication or while in a cast, splint, sling or brace. You, the patient, need to make the final determination about when you are safe to drive, however, the earliest you may consider driving after surgery is below: Hand/Wrist/Elbow Surgery: 3 days Shoulder Surgery: 2 weeks Hip,/Knee/Ankle Surgery: 4 weeks Fracture repair: 6 weeks Return to Work Your return to work depends on what surgery was done and what type of work you do. Please bring any paperwork your employer needs completed to your first post-operative visit. Also, bring a description of your job duties, as this helps us to understand what risks you may face at work. Travel Avoid long distance travel (greater than 1 hour) in airplanes and cars for the first 6 weeks after surgery. If you must travel, you need to have a Doppler ultrasound done before you travel to rule out a blood clot in your legs. Follow-up You should have a follow-up appointment already scheduled 1-2 days after surgery. If not, please contact our office to make this appointment before you leave the hospital. When to call the office It is normal to have swelling and bruising in the limb that was operated on. This will improve with time. It is also normal to have fevers for the first 2 days after surgery. Reasons you should call your doctor include: Uncontrolled pain; Nausea, vomiting, or constipation that does not improve with medication; Fevers over 101.5, chills, sweats; Drainage or bleeding from the wound; Foul odor; Spreading areas of redness; Any other concerns Pending Studies at Discharge: No Stand-Alone Forms: [facility], Opioid Pain Management Medications and DC Order Prescriptions: New oxycodone 5 mg tablet 5 mg PO Q6H PRN (Reason: pain) Qty: 30 RF: 0 diclofenac sodium 75 mg tablet,delayed release (DR/EC) 75 mg PO BID PRN (Reason: pain) 30 Days Qty: 60 RF: 1 Continued cholecalciferol (vitamin D3) [Vitamin D3] 5,000 unit Tablet 5,000 unit PO QAM RF: 0 omega 3-saf-xab-fish oil [Fish Oil] 1,000 mg (120 mg-180 mg) Capsule 1 cap PO QAM RF: 0 magnesium citrate 100 mg Tablet 300 mg PO QAM RF: 0 epinephrine [EpiPen] 0.3 mg/0.3 mL Auto-Injector 0.3 mg IM Q3H PRN (Reason: Allergic Reaction) RF: 0 lisinopril 20 mg Tablet 20 mg PO DAILY RF: 0 Discharge Orders: Discharge Order (Routine); Ordered 07/09/19 Ordered By: Anson Brush/Other Patient Handouts: Surgery Prevent DVT After Admission Data Admit Date/Time: 07/08/19 12:08 Attending Provider: Morgan Davies Admit Provider: Morgan Davies Primary Care Provider: Marcial King Other Interventions: Discharge Summary Assessment (RN) Last Done: 07/09/19 10:27
[2019-07-09] MEDS ORDERED: CeleBREX 200 MG CAP PO SCH (13:00)
== END 2019-07-09 13:53 | disposition home health service (06) | DRG 470 ==
LOC: ASU 06:39 → 3E 12:08